=== PATIENT | male | born 1950 | race Caucasian/White ===

== ENCOUNTER 2020-12-07 19:46 | Emergency (ER) | payer MEDICARE ==
[2020-12-07 20:24] LABS: HEMOGLOBIN 14.5 gm/dl (14.0-17.5); RED BLOOD COUNT 4.42 M/UL (4.20-5.50); WHITE BLOOD COUNT 7.8 K/UL (4.5-11.0)
[2020-12-07 20:46] LABS: BUN/CREATININE RATIO 16 (0-10)
== END 2020-12-07 22:10 | disposition home or self-care (01) ==
LOC: ER1 19:46
PROVIDERS: Physician Assistant Medical
DX: R07.89 Other chest pain (principal); R10.9 Unspecified abdominal pain; E78.5 Hyperlipidemia, unspecified
CPT/HCPCS: 71045; 80053; 82150; 82550; 82553; 83690; 83874; 84484; 85025; 93005; 99285